=== PATIENT | male | born 1955 | race Caucasian/White ===

== ENCOUNTER 2024-01-13 18:06 | Emergency (ER) | payer OTHER ==
[~2024-01-13] VITALS: Ht 185.4 cm; Wt 97.5 kg
[2024-01-13] MEDS ORDERED: Acetaminophen/Hydrocodone 5 MG/325 MG TABLET PO ONE (19:40)
[2024-01-13] MEDS ORDERED: Ondansetron Hydrochloride 4 MG TAB SL ONE (19:40)
[2024-01-13] MEDS ORDERED: cloNIDine Hydrochloride 0.1 MG TAB PO ONE (21:20)
[2024-01-13] MEDS ORDERED: METHOCARBAMOL500 M1 PO (22:53)
[2024-01-13] MEDS ORDERED: NAPROXEN250 MG PO (22:53)
== END 2024-01-13 23:01 | disposition home or self-care (01) ==
LOC: ED 18:06
DX: S20.212A Contusion of left front wall of thorax, initial encounter (principal); I16.0 Hypertensive urgency; V94.0XXA Hitting object or bottom of body of water due to fall from watercraft, initial encounter; Y93.89 Activity, other specified; Y92.89 Other specified places as the place of occurrence of the external cause; Y99.8 Other external cause status